=== PATIENT | female | born 1985 | race African-American/Black ===

== ENCOUNTER 2019-03-21 19:59 | Emergency (ER) | payer MEDICAID ==
[~2019-03-21] VITALS: Ht 165.1 cm; Wt 86.2 kg
[2019-03-21] MEDS ORDERED: HYDROCODONE/APAP 5/325MG 1 EACH TABLET ONE (20:43)
[2019-03-21] MEDS ORDERED: HYDROCODONE/APAP 5/325MG 1 EACH TABLET PO ONE (21:00)
--- NOTE | 2019-03-21 22:44 | NUR ---
PT OK TO DISCHARGE PER HAFSA LEVY. Patient discharged to home in stable condition. Written and verbal after care instructions given. Patient verbalizes understanding of instruction.Patient is awake and alert to self, day, and place. PT ambulatory with a steady gait
[2019-03-21 23:22] VITALS: BP 110/82
== END 2019-03-21 23:23 | disposition home or self-care (01) ==
LOC: ER 20:06
DX: S13.4XXA Sprain of ligaments of cervical spine, initial encounter (principal); S39.012A Strain of muscle, fascia and tendon of lower back, initial encounter; S20.219A Contusion of unspecified front wall of thorax, initial encounter; Z60.2 Problems related to living alone; V49.49XA Driver injured in collision with other motor vehicles in traffic accident, initial encounter; Y93.89 Activity, other specified; Y92.89 Other specified places as the place of occurrence of the external cause; Y99.8 Other external cause status
CPT/HCPCS: 71045-TC; 72110-TC

== ENCOUNTER 2024-01-04 09:06 | Emergency (ER) | payer BC ==
[~2024-01-04] VITALS: Ht 162.6 cm; Wt 108.9 kg
[2024-01-04 09:11] VITALS: BP 132/73; TEMP 99.2; O2SAT 100
[2024-01-04] MEDS ORDERED: FLUORESCEIN SODIUM OPHTH 1 EA STRIP ONE (09:27)
[2024-01-04] MEDS ORDERED: TETRAcaine 5 ML BOTTLE ONE (09:27)
[2024-01-04] MEDS: TETRACAINE HCL 0.5% OPHTALMIC 15 ML BOTTLE OP ONE (09:29)
[2024-01-04] MEDS: FLUORESCEIN SODIUM OPHTH 1 EA STRIP OP ONE (09:45)
[2024-01-04] MEDS ORDERED: ERYT3.5O9 RIGHTEYE (10:31)
== END 2024-01-04 11:16 | disposition home or self-care (01) ==
LOC: ER 09:06
DX: S05.01XA Injury of conjunctiva and corneal abrasion without foreign body, right eye, initial encounter (principal); Z60.2 Problems related to living alone; X58.XXXA Exposure to other specified factors, initial encounter; Y93.89 Activity, other specified; Y92.89 Other specified places as the place of occurrence of the external cause; Y99.8 Other external cause status
CPT/HCPCS: 99283; A6410